=== PATIENT | female | born 1940 | race Caucasian/White ===

== ENCOUNTER → 2018-12-15 | Outpatient (REF) | payer MEDICARE ==
[~2018-12-15] MED LIST: ASPI81CH33 PO; B-12100010 PO; CALCTAB38 PO; ENAL10TA2 PO; MYRB50TA PO; NEUR300C PO; PROAAER10 INH; RANE1000 PO; SM CTAB PO; SPIR1CAP INH; SYMB16INH INH; VITA500C24 PO
[2018-12-15 13:14] LABS: APPEARANCE, URINE CLOUDY (CLEAR); BACTERIA, URINE AUTO NEGATIVE (NEGATIVE); BILIRUBIN, URINE AUTO NEGATIVE (NEGATIVE); BLOOD, URINE BLOOD NEGATIVE (NEGATIVE); COLOR, URINE YELLOW (YELLOW); GLUCOSE, URINE (UA) AUTO NEGATIVE (NEGATIVE); KETONE, URINE AUTO NEGATIVE (NEGATIVE); LEUKOCYTE ESTERASE, URINE AUTO NEGATIVE (NEGATIVE); NITRITE, URINE AUTO NEGATIVE (NEGATIVE); PROTEIN, URINE AUTO NEGATIVE (NEGATIVE); RBC, URINE AUTO 0 /HPF (0-3); SPECIFIC GRAVITY URINE AUTO 1.013 (1.002-1.035); SQUAMOUS EPITHELIAL CELL UR AU 1 /HPF (0-6); UROBILINOGEN, URINE AUTO 0.2 mg/dL (0.0-2.0); WBC, URINE AUTO 0 /HPF (0-3)
== END ==
LOC: M SMT 12:54
PROVIDERS: ATTEND Nurse Practitioner Women's Health
DX: R39.14 Feeling of incomplete bladder emptying (principal)
CPT/HCPCS: 51798; 81001; 87086; G0463

== ENCOUNTER 2018-12-18 12:00 | Outpatient (RCR) | payer MEDICARE ==
[2018-12-18] MEDS ORDERED: ENAL10TA2 PO (13:02)
[2018-12-18] MEDS ORDERED: NEUR300C PO (13:02)
[2018-12-18] MEDS ORDERED: SPIR1CAP INH (13:02)
[2018-12-18] MEDS ORDERED: RANE1000 PO (13:02)
[2018-12-18] MEDS ORDERED: MYRB50TA PO (13:02)
[2018-12-18] MEDS ORDERED: SM CTAB PO (13:02)
[2018-12-18] MEDS ORDERED: VITA500C24 PO (13:02)
[2018-12-18] MEDS ORDERED: SYMB16INH INH (13:02)
[2018-12-18] MEDS ORDERED: ASPI81CH33 PO (13:02)
[2018-12-18] MEDS ORDERED: PROAAER10 INH (13:02)
[2018-12-18] MEDS ORDERED: B-12100010 PO (13:02)
[2018-12-18] MEDS ORDERED: CALCTAB38 PO (13:02)
== END 2018-12-27 ==
LOC: M PR 12:00
PROVIDERS: ATTEND Internal Medicine Pulmonary Disease
DX: J44.9 Chronic obstructive pulmonary disease, unspecified (principal)

== ENCOUNTER → 2019-11-08 | Outpatient (REF) | payer MEDICARE | LOC: M LAB REF 13:15 | PROVIDERS: ATTEND Physician Assistant | DX: R06.00 Dyspnea, unspecified (principal) ==